=== PATIENT | female | born 1935 | race Caucasian/White ===

== ENCOUNTER 2016-09-09 09:13 | Inpatient (IN) | payer BC ==
--- NOTE | ~2016-09-09 | DS ---
Discharge Summary [facility] [address] [place]. [address] NAME: YANET ANAYA : 39 STATUS : DIS IN PAT#: [id number] AGE: 81 ADM/REG DATE : 09/09/16 MR#: [id number] REPORT SERV DATE: 09/14/16 DICTATED BY: GARTH ALONSO DATE: 09/13/16 REPORT STATUS : Draft TRANSCRIBED BY: MODL DATE: 09/13/16 ADMISSION DATE: 09/09/2016 DISCHARGE DATE: 09/13/2016 DISCHARGE DIAGNOSES: 1. Fall with uncontrolled back pain. 2. Generalized debility secondary to cerebrovascular accident. 3. Recurrent presyncopal episode. 4. Hypertension. 5. Hyperlipidemia. IMAGIN. MRI of the brain, 09/09/2016. Impression: No acute CVA or other acute intracranial pathology identified. Advanced diffuse cerebral involutional changes and moderate advanced deep white matter, chronic microvascular ischemic changes. Very small 2 mm old lacunar infarct, internal capsule right basilar ganglia. 2. Pelvic x-ray, 09/09/2016. Impression: Left hip prosthesis in anatomic alignment. No acute abnormality. 3. Lumbar spine x-ray, 09/09/2016. Impression: Compression deformities of T12 and L1 are similar to 2014. 4. Carotid ultrasound, 09/10/2016. Impression: Carotid category 1 less than 50% luminal stenosis. Right vertebral antegrade subclavian 115 cm/S. Left vertebral antegrade subclavian velocity 80 cm/S normal. 5. Echocardiogram, 09/10/2016. Normal LV size and systolic function. Estimated ejection fraction 60% to 65%. Mild concentric LVH. No regional wall motion abnormalities identified. Mild diastolic dysfunction. Normal RV size and systolic function. Mild aortic valve stenosis with mean pressure of 10 mmHg. No evidence of atypical thrombus with the use of intravenous contrast. 6. Chest x-ray, 09/12/2016. Impression: Lungs clear. Normal heart size. HOSPITAL COURSE: Please refer to history and physical dictated by Dr. Emilio Stewart on 09/09/2016 for complete admission details. This patient is a 81-year-old female with a history of hypertension, hyperlipidemia, CVA with chronic left hemiparesis, wheelchair bound, who presented to [facility] with complaints of recent fall with severe back pain. Family was at bedside with the patient during the evaluation. The patient stated upon admission that she had a recent fall due to increased weakness and does state that she is wheelchair bound, but is having difficulty transferring from wheelchair to bed or chair. The patient was admitted to the hospital for further evaluation and testing. The patient underwent a carotid ultrasound, echocardiogram, and Doppler which noted negative. The patient has had no syncopal episodes during this admission. PT evaluation was completed which did recommend for the patient to continue physical therapy in a senior care facility. The patient has been working with PT during her hospital stay. At this time, the patient will be transferred to a senior care facility for further rehabilitation, family and the patient are in agreement. The patient will follow up with her primary care regarding presyncopal Discharge Summary [address] [place]. [address] NAME: YANET ANAYA : 39 STATUS : DIS IN PAT#: [id number] AGE: 81 ADM/REG DATE : 09/09/16 MR#: [id number] REPORT SERV DATE: 09/14/16 DICTATED BY: GARTH ALONSO DATE: 09/13/16 REPORT STATUS : Draft TRANSCRIBED BY: CHRISTIE DATE: 09/13/16 episodes, etiology was unknown at this time. Seizures were ruled out. No change in medications noted. DISCHARGE MEDICATIONS: 1. Norvasc 5 mg one p.o. daily. 2. Aspirin 81 mg one p.o. daily. 3. Lipitor 80 mg one p.o. daily. 4. HCTZ 12.5 mg p.o. daily. 5. Trandate 300 mg one, three times daily. 6. Lisinopril 10 mg one p.o. daily. 7. Protonix 40 mg one p.o. daily. 8. Tylenol 325 mg, 650 mg p.o. every 4 hours p.r.n. for pain. 9. Colace 100 mg one p.o. twice daily. 10.Hydrocodone 5/325 mg one tablet every 6 hours p.r.n. for pain. 11.Zofran 4 mg one p.o. every 4 hours p.r.n. for nausea. 12.Senna two tablets p.o. p.r.n. at bedtime. This discharge took less than 30 minutes. [facility]/MODL Garth Alonso NP / [id number] CC: Isrrael Escamilla MD
--- NOTE | ~2016-09-09 | HP ---
History And Physical [facility] [address] [place]. [address] NAME: YANET ANAYA : 39 STATUS : ADM IN PAT#: [id number] AGE: 81 ADM/REG DATE : 09/09/16 MR#: [id number] REPORT SERV DATE: 09/09/16 DICTATED BY: CAMILO PALUMBO II DATE: 09/09/16 REPORT STATUS : Draft TRANSCRIBED BY: MODSallie DATE: 09/09/16 DATE OF ADMISSION: 09/09/2016 CHIEF COMPLAINT: Ground level fall with severe back pain. HISTORY OF PRESENT ILLNESS: The patient is a 81-year-old female with a history of hypertension, hyperlipidemia, and CVA with chronic left hemiparesis, wheelchair-bound, who presented to [facility] with family after experiencing a ground level fall while transferring from the toilet back to her wheelchair, this happened late at night around 2 a.m. and the family found the patient in between the handrail and the toilet. They assisted her back to her bed. The patient denies hitting her head. Denies any syncope or loss of consciousness. She is however unable to explain why she exactly fell. Unable to say if she got a weak, missed handrail, or was dizzy. She says she is just not sure. She was helped to the bed and early this morning, the patient was having severe back pain, and the family who usually takes care for 07/01 was unable to transfer her given her pain and weakness. They are usually able to take care of the patient as she can transition and transfer on her own. However, at this point, the family is unable to assist her as the patient now can no longer transfer herself given the pain. She denies any new focal weakness and is mainly limited due to pain. She did not have any loss of bowel or bladder function. The family gives a history of recurrent episodes of less than two-minute episodes of staring with eyes open and looking up to the left. Family states these episodes happen about once a week at least that they are able to observe. During these episodes, she does not have any shaking, seizure- like activity, loss of bowel or bladder function, but comes around after about a minute or two. She also has had several episodes of getting dizzy, presyncopal while sitting in the wheelchair, and had to be laid down in bed. Both of these have happened over the last year or two, however, seemed to be worsening over the last six months. According to the family, Dr. Mckeon, her primary care physician, is in the process of obtaining a carotid ultrasound and echocardiogram for her recurrent presyncope. Though she has not obtained these yet. Currently, the patient actually denies any symptoms of chest pain, shortness of breath, palpitations, dizziness. Denies any fevers, chills, or recent illnesses. She has actually been in her usual state of health, eating well. No nausea, vomiting, or diarrhea. Denies any abdominal pain. Denies any dysuria or urinary problems. Denies any headaches or blurry vision. Denies any weight loss. REVIEW OF SYSTEMS: 10-point review of systems otherwise negative except for HPI. PAST MEDICAL HISTORY: 1. Hypertension. 2. Hyperlipidemia. 3. History of long-term tobacco abuse. 4. History of CVA with chronic left hemiparesis, wheelchair-bound. PAST SURGICAL HISTORY: 1. Left hip hemiarthroplasty. 2. Shoulder surgery. History And Physical [address] [address] NAME: YANET ANAYA : 39 STATUS : ADM IN [facility]#: [id number] AGE: 81 ADM/REG DATE : 09/09/16 MR#: [id number] REPORT SERV DATE: 09/09/16 DICTATED BY: CAMILO PALUMBO II DATE: 09/09/16 REPORT STATUS : Draft TRANSCRIBED BY: MODSallie DATE: 09/09/16 ALLERGIES: NO KNOWN DRUG ALLERGIES. SOCIAL HISTORY: The patient currently lives at home with her family who assists her. Denies any alcohol use. She smokes one to two packs a day for most of her life but quit about four years ago. FAMILY HISTORY: Significant for heart disease, diabetes, and nearly all of her family members, most of whom are . She also has a family history of lymphoma and several cancers. HOME MEDICATIONS: Norvasc, aspirin, Lipitor, Nexium, hydrochlorothiazide, labetalol, and Proventil. PHYSICAL EXAMINATION: VITAL SIGNS: Blood pressure 154/94, temperature 97.5, pulse 81, respirations 14, O2 saturation 93% on room air. GENERAL: The patient is alert and oriented x3, in no acute distress. NECK: Supple. Nontender. No lymphadenopathy, thyromegaly, or bruits. HEENT: Moist mucous membranes. Pupils are equal, round, reactive to light. Conjunctivae clear. RESPIRATORY: Lungs are clear to auscultation bilaterally. No wheezes, rhonchi, or rales. CARDIOVASCULAR: Regular rate and rhythm. No murmurs, rubs, or gallops. ABDOMEN: Soft, nontender, nondistended. Normoactive bowel sounds. EXTREMITIES: No cyanosis, clubbing, or edema. SKIN: No lesions, rashes, or wounds. NEUROLOGIC: The patient has 3/5 muscle strength in left upper extremity and 4/5 in left lower extremity. No sensory deficits. Cranial nerves 2 through 12 are intact. LABORATORY DATA: None. IMAGING: X-rays of the pelvis without any displacement of the patient's arthroplasty and no evidence of fractures. Lumbar x-rays pending. ASSESSMENT AND PLAN: The patient is a 81-year-old female with. 1. Ground level fall with back pain, likely soft tissue injury, but need to rule out compression fracture. Lumbar x-rays are pending. We will provide pain control. 2. Generalized debility secondary to late effect of cerebrovascular accident with chronic left hemiparesis, wheelchair-bound. Now, family unable to manage the patient at home after the fall, as the patient can no longer transfer herself and they cannot lift her. Will need PT evaluation and treat and possible Case Management for subacute rehab. 3. Recurrent presyncope of uncertain etiology. Since her PCP had already been in the workup of getting carotid Doppler and echo, we will monitor on tele and obtain the aforementioned. 4. Possible absence seizures. Certainly, the patient's staring spells and looking up to the left are suspicious for seizure activity. Given her history of stroke, it is certainly possible. We will check an MRI of the brain and EEG. Consider neuro History And Physical [address] [place]. [address] NAME: YANET ANAYA : 39 STATUS : ADM IN [facility]#: [id number] AGE: 81 ADM/REG DATE : 09/09/16 MR#: [id number] REPORT SERV DATE: 09/09/16 DICTATED BY: CAMILO PALUMBO II DATE: 09/09/16 REPORT STATUS : Draft TRANSCRIBED BY: CHRISTIE DATE: 09/09/16 evaluation depending on findings. Otherwise, we will continue the patient's aspirin, statin, and blood pressure medications. 5. Hypertension, home medications. 6. Hyperlipidemia, home medications. 7. The patient is full code. SOHA/CHRISTIE Camilo Palumbo II, MD / [id number] CC: Camilo Palumbo II, MD
--- NOTE | ~2016-09-09 | EEG ---
Electroencephalogram [facility] [address] [place]. [address] NAME: YANET ANAYA : 39 STATUS : ADM IN PAT#: [id number] AGE: 81 ADM/REG DATE : 09/09/16 MR#: [id number] REPORT SERV DATE: 09/10/16 DICTATED BY: JEANETTE SWANN DATE: 09/10/16 REPORT STATUS : Draft TRANSCRIBED BY: CHRISTIE DATE: 09/10/16 EEG NUMBER: [id number]. HOURS OF SLEEP: Seven to eight. ASSISTANT THERAPY AIDE: Dejan Schwab INTRODUCTION: This is an 18-channel EEG recorded with scalp electrodes in the International 10-20 system. The patient is a 81-year-old female who had an unwitnessed fall and a history of CVA. CURRENT MEDICATIONS: Include Lipitor, Protonix, Trandate, lisinopril, hydrochlorothiazide, Norvasc, and tramadol. DESCRIPTION: The background rhythm while awake consisted of 7-8 hertz activity present from occipital head regions. This tended to fluctuate throughout the EEG, and at times, slower frequencies are also recorded. The activity appeared to be symmetric from the two hemispheres. Photic stimulation from the 1 through 21 hertz frequencies did not produce a significant change in the EEG. Hyperventilation was not performed. The patient became drowsy, however, prolonged drowsiness and sleep were not recorded. There was a single sharp wave noted. On the EKG lead, a regular rhythm was recorded. IMPRESSION: THIS EEG SHOWS MILD BACKGROUND SLOWING. THERE IS NO CLEAR EPILEPTIFORM ACTIVITY PRESENT. MARLEY/CHRISTIE Jeanette Swann M.D. / [id number] CC: Emilio Stewart II, MD
[~2016-09-09 09:13] MED LIST: ASAB PO; HYDROCHLOROT25 MG PO; LABETALOL; LIPITOR80 MG PO; LISINOPRIL; MICROZIDE PO; NORV5 PO; PREV15 PO; PRIN20 PO; TRAN200 PO; TRANDAT300 PO; VITAMIN D31000 UNIT PO; ZESTRIL20 MG PO; ZOCOR40 PO
[2016-09-09] MEDS ORDERED: TRANDAT300 PO (10:46)
[2016-09-09] MEDS ORDERED: HALF81 PO (10:46)
[2016-09-09] MEDS ORDERED: LIPITOR80 MG PO (10:46)
[2016-09-09] MEDS ORDERED: HYDROCHLOROT12.5 MG PO (10:47)
[2016-09-09] MEDS ORDERED: NORV5 PO (10:47)
[2016-09-09] MEDS ORDERED: PRIN10 PO (10:47)
[2016-09-09] MEDS ORDERED: NEXIUM20 M1 PO (10:47)
[2016-09-09 13:26] LABS: BASOPHILS 0.1 %; BASOPHILS ABSOLUTE 0.01 10/3/uL (0.0-0.16); EOSINOPHILS 0.7 %; EOSINOPHILS ABSOLUTE 0.06 10/3/uL (0.0-0.53); HEMATOCRIT 36.3 % (36.0-48.0); HEMOGLOBIN 12.9 g/dL (12.0-16.0); IMMATURE GRANULOCYTES 0.2 %; IMMATURE GRANULOCYTES ABSOLUTE 0.02 10/3/uL (0.0-0.11); LYMPHOCYTES 21.1 %; LYMPHOCYTES ABSOLUTE 1.83 10/3/uL (0.67-4.30); MEAN CORPUS HGB CONC 35.5 g/dL (32.0-36.0); MEAN CORPUSCULAR HEMOGLOB 29.8 pg (26.0-34.0); MEAN CORPUSCULAR VOLUME 83.8 fL (80-100); MONOCYTES 5.5 %; MONOCYTES ABSOLUTE 0.48 10/3/uL (0.21-1.20); NEUTROPHILS 72.4 %; NEUTROPHILS ABSOLUTE 6.28 10/3/uL (2.02-8.40); PLATELET COUNT 269 10/3/uL (150-400); RBC DISTRIBUTION WIDTH 12.7 % (12.0-16.0); RED CELL COUNT 4.33 10/6/uL (4.0-5.6); WHITE BLOOD CELLS 8.7 10/3/uL (4.5-10.5)
[2016-09-09 13:27] LABS: MANUAL DIFF NO %
[2016-09-09 13:49] LABS: ALBUMIN 3.3 G/DL (3.5-5.0); ALKALINE PHOSPHATASE 141 U/L (45-117); BUN (BLOOD UREA NITROGEN) 13 MG/DL (6-23); CALCIUM, SERUM 8.5 MG/DL (8.5-10.4); CHLORIDE, SERUM 98 MMOL/L (96-112); CO2 (CARBON DIOXIDE) 28 MMOL/L (24-34); CREATININE 0.73 MG/DL (0.55-1.02); GFR AFRICAN AMERICAN 91 ML/MIN (>=60); GFR NON AFRICAN AMERICAN 78 ML/MIN (>=60); GLOBULIN 3.4 G/DL (2.5-4.1); GLUCOSE, SERUM 112 MG/DL (60-99); POTASSIUM, SERUM 3.4 MMOL/L (3.5-5.3); SGOT(AST) 21 U/L (5-40); SGPT(ALT) 14 U/L (5-65); SODIUM, SERUM 135 MMOL/L (135-148); TOTAL BILIRUBIN 0.9 MG/DL (0-1.2); TOTAL PROTEIN 6.7 G/DL (6.0-8.5)
[2016-12-14] MEDS ORDERED: REM15 PO (15:34)
[2016-12-14] MEDS ORDERED: KEPPRA500 PO (15:35)
[2016-12-14] MEDS ORDERED: KLOR-CON M2020 MEQ PO (15:35)
[2016-12-14] MEDS ORDERED: TRANDAT300 PO (15:36)
[2016-12-14] MEDS ORDERED: TEARS PLUS OPH (15:37)
[2017-03-09] MEDS ORDERED: NEXIUM20 M1 PO (23:39)
[2017-03-09] MEDS ORDERED: REM15 PO (23:40)
[2017-03-09] MEDS ORDERED: LIPITOR80 MG PO (23:40)
[2017-03-09] MEDS ORDERED: ASAB PO (23:40)
[2017-03-09] MEDS ORDERED: NORV5 PO (23:40)
[2017-03-09] MEDS ORDERED: DOK100 MG PO (23:41)
[2017-03-09] MEDS ORDERED: TRANDAT300 PO (23:41)
[2017-03-09] MEDS ORDERED: PRIN10 PO (23:42)
[2017-03-09] MEDS ORDERED: MAGOX4 PO (23:42)
[2017-03-09] MEDS ORDERED: KEPPRA500 PO (23:42)
[2017-03-09] MEDS ORDERED: T PO (23:43)
[2017-03-09] MEDS ORDERED: KLOR-CON M2020 MEQ PO (23:43)
[2017-03-09] MEDS ORDERED: ZOL50 PO (23:44)
[2017-03-09] MEDS ORDERED: REFRESH OPH SO0.3 ML OPH (23:44)
== END 2016-09-13 16:08 | DRG 552 ==
LOC: ER 09:13 → 4EA 10:42
PROVIDERS: Internal Medicine
DX: M54.89 Other dorsalgia (principal); I69.354 Hemiplegia and hemiparesis following cerebral infarction affecting left non-dominant side; Z99.3 Dependence on wheelchair; I10 Essential (primary) hypertension; E78.5 Hyperlipidemia, unspecified; R55 Syncope and collapse; W05.0XXA Fall from non-moving wheelchair, initial encounter; Y92.002 Bathroom of unspecified non-institutional (private) residence as the place of occurrence of the external cause; Z87.891 Personal history of nicotine dependence; Z79.82 Long term (current) use of aspirin
CPT/HCPCS: 70551; 71010; 72100; 72170; 80053; 83735; 84443; 85025; 93005; 93880; 95816; 97110-GP; 97162-GP; 99284; A9270-GY; C8929; J1885; Q9957